=== PATIENT | female | born 1985 | race Caucasian/White ===

== ENCOUNTER 2025-06-24 10:58 | Observation (INO) ==
[2025-06-24 11:14] VITALS: BMI 27.1
[2025-06-24] MEDS ORDERED: DUONEB 0.5 MG/3 MG (3 mL) NEB ONE (11:22)
[2025-06-24] MEDS: DUONEB 0.5 MG/3 MG (3 mL) NEB ONE (11:31)
--- NOTE | 2025-06-24 12:13 | DR.URIAD ---
HPI Time Seen Time Seen by Provider: 06/24/25 11:18 PCP Primary Care Physician: Nancy Complaint Chief Complaint Doctors Comments: Patient with 2 weeks of coughing, shortness of breath and wheezing. Patient is a current smoker. Patient states she was treated with a Z-Madhu and later with amoxicillin and prednisone. States she is still getting short of breath easily with exertion. Chief Complaint:: Cohgestion, wheezing, SOB, coughing x 2 weeks. She has been treated with Z Pack and currently taking Amoxicillin and Prednisone Self Treatment fo Chief Complaint: Rx med COVID-19 Coronavirus risk:travel/contact w/high risk person: No Has patient experienced Coronavirus symptoms: Yes Coronavirus symptoms experienced: Coughing and Shortness of Breath Source History Provided: Patient Mode of Arrival Mode of Arrival: Ambulatory Timing Onset of Chief Complaint: 06/10/25 PMH PMH Past Medical History: Yes Past Medical History: Anxiety, Depression and GERD Past Medical History Comment: MS Past Surgical History: Yes Surgical History: Hysterectomy Family History History of Family Medical Conditions: Yes Family Medical History: Diabetes Mellitus, Cancer and Hypertension Social History Does patient currently use any type of tobacco product: No Have you used tobacco products in the last 12 months: No Type of Tobacco Use: None Does any household member use tobacco: No Alcohol Use: Rarely Do you use any recreational Drugs:: No Lives With: Spouse Lives Where: Home Travel Risk Coronavirus risk:travel/contact w/high risk person: No Has patient experienced Coronavirus symptoms: Yes Coronavirus symptoms experienced: Coughing and Shortness of Breath Infectious screening In the last 2 months have you had wt loss of >10#?: NO Have you had fever, night sweats or hemotysis?: No Have you traveled outside the country in the last 6 months?: No Isolation: Standard ROS Review of Systems Constitutional: No Symptoms Reported; negative Fever Eyes: No Symptoms Reported ENTM: No Symptoms Reported Respiratoy: Non-Productive Cough, Short of Breath and Wheezing Cardiovascular: No Symptoms Reported Gastrointestinal/Abdominal: No Symptoms Reported Genitourinary: No Symptoms Reported Neurological: No Symptoms Reported Musculoskeletal: No Symptoms Reported Integumentary: No Symptoms Reported Hematologic/Lymphatic: No Symptoms Reported Endocrine: No Symptoms Reported Psychiatric: No Symptoms Reported All Other Systems: Reviewed and Negative PE Vital Signs Vitals: Vital Signs Temperature 98.8 F Pulse Rate 88 Respiratory Rate 18 Blood Pressure 120/67 O2 Sat by Pulse Oximetry 95 General Limitations: No Limitations General Appearance: Alert and In No Apparent Distress Head Head Exam: Normal Inspection Eyes Eye exam: Normal Appearance Neck Neck Exam: Normal Inspection Chest Chest Inspection: Normal Inspection Respiratory Respiratory Exam: Accessory Muscle Use Respiratory Exam: Bilateral: Wheezing Cardiovascular Cardiovascular Exam: Regular Rate and Normal Rhythm Abdominal Exam Abdominal Exam: Normal Inspection, Normal Bowel Sounds and Soft Extremeties Extremities Exam: Normal Inspection Back Back Exam: Normal Inspection Neurologic Neurological Exam: Alert and Oriented X3 Psychiatric Psychiatric Exam: Normal Affect and Normal Mood Skin Skin Exam: Warm, Dry, Intact and Normal Color COURSE Treatment Treatment: Patient had some improvement with steroid injection and DuoNeb. Patient is still wheezing and coarse bilaterally. She has been doing 20 mg of prednisone at home daily with yesterday being the last dose. Reevaluation 1st: Improved Consultation Consultation Comments: Discussed case with Dr. Cruz and he is agreeable with admission. ROR Labs Reviewed Laboratory Results Reviewed?: Yes 06/24/25 12:21 06/24/25 12:21 Laboratory: WBC 13.1 X10^3/uL (3.6-10.0) H 06/24/25 12:21 RBC 4.98 X10^6/uL (3.5-5.4) 06/24/25 12:21 Hgb 14.5 g/dL (12.0-16.0) 06/24/25 12:21 Hct 42.7 % (36.0-47.0) 06/24/25 12:21 MCV 85.7 fL (80.0-100.0) 06/24/25 12:21 MCH 29.1 pg (27.0-34.0) 06/24/25 12:21 MCHC 34.0 g/dL (33.0-35.0) 06/24/25 12:21 RDW 13.4 % (11.6-16.5) 06/24/25 12:21 Plt Count 262 X10^3/uL (150.0-450.0) 06/24/25 12:21 MPV 8.6 fL (7.4-11.0) 06/24/25 12:21 Neut % (Auto) 73.7 % (42.0-75.0) 06/24/25 12:21 Lymph % (Auto) 18.2 % (21.0-51.0) L 06/24/25 12:21 [place] % (Auto) 7.4 % (0.0-13.0) 06/24/25 12:21 Eos % (Auto) 0.1 % (0.9-2.9) L 06/24/25 12:21 Baso % (Auto) 0.6 % (0.2-1.0) 06/24/25 12:21 Neut # (Auto) 9.7 x10^3/uL (2.2-4.8) H 06/24/25 12:21 Lymph # (Auto) 2.4 X10^3/uL (1.3-2.9) 06/24/25 12:21 [place] # (Auto) 1.0 x10^3/uL (0.3-0.8) H 06/24/25 12:21 Eos # (Auto) 0.0 x10^3/uL (0.0-0.2) 06/24/25 12:21 Baso # (Auto) 0.1 X10^3/uL (0.0-0.1) 06/24/25 12:21 Absolute Nucleated RBC 0.0 /100WBC 06/24/25 12:21 Sodium 142 mmol/L (136-145) 06/24/25 12:21 Corrected Sodium TNP 06/24/25 12:21 Potassium 3.5 mmol/L (3.5-5.1) 06/24/25 12:21 Chloride 103 mmol/L (98-107) 06/24/25 12:21 Carbon Dioxide 28.7 mmol/L (21-32) 06/24/25 12:21 BUN 17 mg/dL (7-18) 06/24/25 12:21 Creatinine 1.00 mg/dL (0.55-1.02) 06/24/25 12:21 Est GFR (MDRD) Af Amer > 60 (>60) 06/24/25 12:21 Est GFR (MDRD) Non-Af > 60 (>60) 06/24/25 12:21 Glucose 80 mg/dL (65-99) 06/24/25 12:21 Calcium 9.2 mg/dL (8.5-10.1) 06/24/25 12:21 Corrected Calcium TNP 06/24/25 12:21 Total Bilirubin 0.20 mg/dL (0.2-1.0) 06/24/25 12:21 AST 13 Units/L (15-37) L 06/24/25 12:21 ALT 11 Units/L (12-78) L 06/24/25 12:21 Alkaline Phosphatase 69 Units/L (46-116) 06/24/25 12:21 Total Protein 7.7 g/dL (6.4-8.2) 06/24/25 12:21 Albumin 3.9 g/dL (3.4-5.0) 06/24/25 12:21 Globulin 3.8 g/dL (2.5-4.5) 06/24/25 12:21 Albumin/Globulin Ratio 1.0 Ratio (1.1-2.1) L 06/24/25 12:21 SARS-CoV-2 (PCR) Negative (NEGATIVE) 06/24/25 11:05 Influenza Type A (PCR) Negative (NEGATIVE) 06/24/25 11:05 Influenza Type B (PCR) Negative (NEGATIVE) 06/24/25 11:05 RSV (PCR) Negative (NEGATIVE) 06/24/25 11:05 XRAY X-ray Results: Name: JOSEY DORSEY : 1985 Sex: F Location: Order Number(s): [id number] Procedure(s):CHEST, 1 VIEW X-RAY Ordering Physician: Handy Bennett Primary Care: Tre Cruz MD Service Date: 06/24/25 Service Time: 1214 EXAM: CHEST, 1 VIEW HISTORY: cough; COMPARISON: No relevant prior studies were available for comparison at the time of interpretation. TECHNIQUE: CHEST, 1 VIEW FINDINGS: Chest: Lines and tubes: None Mediastinum: Cardiac and mediastinal shadow is within normal limits for size and contour. Pulmonary vessels: No pulmonary vascular congestion. Lung rosales: No suspicious airspace opacity. Pleura: No effusion. No pneumothorax. Bones and soft tissues: No acute osseous or soft tissue abnormality. IMPRESSION: 1. No acute cardiopulmonary abnormality THIS IS AN ELECTRONICALLY VERIFIED FINAL REPORT 06/24/2025 12:35 PM - Electronically signed by Robi Ruelas MD Opioid Opioid Risk Tool Age (Gadiel box if 16-45): Yes History of Preadolescent Sexual Abuse: No Total: 1 Total Score Risk Category: Low Risk Copyright: Ney UGARTE predicting aberrant behaviors Discharge Plan Diagnosis Discharge Problem: COPD exacerbation Discharge Plan Patient Disposition: 09 ADMITTED INPATIENT Condition: Stable Prescriptions: No Action oxycodone-acetaminophen [Percocet] 10-325 mg tablet 1 tab PO TID MDD 3 PRN (Reason: pain) 30 Days Qty: 90 0RF famotidine [Pepcid] 40 mg tablet 40 mg PO QDAY Qty: 30 3RF fluoxetine [Prozac] 40 mg capsule 40 mg PO QDAY Qty: 30 3RF gabapentin 300 mg capsule 300 mg PO BID PRN (Reason: pain) 30 Days Qty: 60 2RF prednisone 20 mg tablet 20 mg PO QDAY 5 Days Qty: 5 0RF amoxicillin-pot clavulanate 875-125 mg tablet 1 tab PO BID 10 Days Qty: 20 0RF albuterol sulfate [Ventolin HFA] 90 mcg/actuation HFA aerosol inhaler 2 puff inhalation Q4-6H PRN (Reason: shortness of breath or wheezing) 30 Days Qty: 8.5 0RF dimethyl fumarate 120 mg (14)- 240 mg (46) capsule,delayed release(DR/EC) PO Health Concerns: Post Hospitalization: new medications and changes needed to prevent readmission or further decline. Pt educated and given instructions on all concerns. Plan of Treatment: Continue with present treatment and follow up plan. Pt is to keep follow up appointment as instructed and take medications as ordered. Orders to Discharge Patient Discharge Orders: Transfer (Routine); Ordered 06/24/25 Ordered By: Handy Bennett Follow ups/Referrals Follow ups/Referrals: Tre Cruz MD [Primary Care Provider, MEDICAL] - 3 days Instructions Stand Alone Forms: Find Help Web Site, Post Hospital Follow Up Care Print Language: NAURUAN
[2025-06-24 12:33] LABS: MEAN PLATELET VOLUME 8.6 fL (7.4-11.0); RED CELL DISTRIBUTION WIDTH 13.4 % (11.6-16.5)
--- NOTE | 2025-06-24 12:43 | RAD ---
EXAM: CHEST, 1 VIEW HISTORY: cough; COMPARISON: No relevant prior studies were available for comparison at the time of interpretation. TECHNIQUE: CHEST, 1 VIEW FINDINGS: Chest: Lines and tubes: None Mediastinum: Cardiac and mediastinal shadow is within normal limits for size and contour. Pulmonary vessels: No pulmonary vascular congestion. Lung rosales: No suspicious airspace opacity. Pleura: No effusion. No pneumothorax. Bones and soft tissues: No acute osseous or soft tissue abnormality. IMPRESSION: 1. No acute cardiopulmonary abnormality THIS IS AN ELECTRONICALLY VERIFIED FINAL REPORT 06/24/2025 12:35 PM - Electronically signed by Robi Ruelas MD
[2025-06-24 12:52] LABS: CREATININE 1.00 mg/dL (0.55-1.02); eGFR NON BLACK RACES > 60 (>60)
[2025-06-24] MEDS ORDERED: ULTRAM PO PRN (14:02)
[2025-06-24] MEDS ORDERED: TYLENOL 325 MG TAB PO PRN (14:02)
[2025-06-24] MEDS: VISBIOME PROBIOTIC CAP 112.5 B or equivalent PO SCH (14:17)
[2025-06-24] MEDS: MAALOX or MYLANTA PO PRN (17:03)
[2025-06-24] MEDS: DUONEB 0.5 MG/3 MG (3 mL) NEB SCH (17:19)
[2025-06-24] MEDS: PULMICORT NEB TX 0.5 MG NEB SCH (20:32)
[2025-06-24] MEDS ORDERED: PEPCID TAB 40 MG ONE (20:39)
[2025-06-24] MEDS: NEURONTIN CAP 300 MG PO PRN (20:52)
[2025-06-24] MEDS: PEPCID TAB 40 MG PO SCH (20:53)
[2025-06-24] MEDS: ROBITUSSIN DM PO PRN (22:26)
[2025-06-25 05:31] LABS: MEAN PLATELET VOLUME 8.7 fL (7.4-11.0); RED CELL DISTRIBUTION WIDTH 13.3 % (11.6-16.5)
[2025-06-25 05:35] LABS: COR NA(FOR HYPERGLY) 140 mmol/L (136-145); CREATININE 0.77 mg/dL (0.55-1.02); eGFR NON BLACK RACES > 60 (>60)
[2025-06-25] MEDS: TUSSIONEX PENNKINETIC SUSP PO PRN (09:00)
[2025-06-25] MEDS: ZITHROMAX INJ 500 MG VIAL 500 MG in NS 250 ML IV 250 ML IV SCH (10:10)
--- NOTE | 2025-06-25 11:20 | RAD ---
EXAM: CHEST, 1 VIEW HISTORY: F/U SOB, COUGH; COMPARISON: 06/24/2025 TECHNIQUE: AP .br.br.br.br consolidation, pleural effusion, or pneumothorax. IMPRESSION: No acute cardiopulmonary findings. THIS IS AN ELECTRONICALLY VERIFIED FINAL REPORT 06/25/2025 11:14 AM - Electronically signed by Juan Kahn MD
--- NOTE | 2025-06-25 13:16 | DR.H&P ---
H&P History & Physical for Day of: H&P Date: 06/25/25 Chief Complaint Chief Complaint: Cough shortness of breath History of Present Illness History of Present Illness: Patient is a 40-year-old female with a past medical history of MS, anxiety, depression, GERD and COPD presented with worsening dyspnea and URI symptoms. She has had the symptoms for over 2 weeks and has been treated outpatient with multiple rounds of antibiotics and steroids. She continued to have worsening cough and shortness of breath so presented to the ER. ER workup included chest x-ray which did not show any acute changes. Labs revealed elevated WBC. She was started on IV steroids and bronchodilators. She was admitted for further evaluation. This morning, she is feeling slightly better. She is currently on room air. She reports a history of smoking. Labs/imaging reviewed: - WBC 14.2 hemoglobin 13.3 potassium 4.1 creatinine 0.77 - Chest x-ray: No acute changes - Blood cultures and sputum culture pending Plan: Continue bronchodilators, IS and steroids. Will add azithromycin. CT chest ordered to evaluate further but not approved by insurance at this time. Follow-up pending cultures. Order AIT. Will repeat chest x-ray. Resume home medications. Replace electrolytes as per protocol. Monitor a.m. labs and imaging. Past Medical History Past Medical History: Anxiety, Depression and GERD Past Surgical History Surgical History: Hysterectomy and Ortho Surgery Family History Family Medical History: Diabetes Mellitus, Cancer and Hypertension Social History Does patient currently use any type of tobacco product: No Have you used tobacco products in the last 12 months: No Type of Tobacco Use: None Does any household member use tobacco: No Alcohol Use: None Drug Use: None Medications Home Medications: Home Medications Medication Instructions Recorded Confirmed Type dimethyl fumarate 120 mg (14)-240 cap PO 06/24/2512/17 History mg (46) capsule,delayed release Allergies Allergies Allergy/AdvReac Type Severity Reaction Status Date / Time ciprofloxacin (From Cipro) Allergy ANAPHALEXIS Verified 06/20/25 13:40 REACTION naproxen Allergy Verified 06/20/25 13:40 Labs 06/25/25 05:15 06/25/25 05:15 Labs: Laboratory WBC 14.2 X10^3/uL (3.6-10.0) H 06/25/25 05:15 RBC 4.54 X10^6/uL (3.5-5.4) 06/25/25 05:15 Hgb 13.3 g/dL (12.0-16.0) 06/25/25 05:15 Hct 39.2 % (36.0-47.0) 06/25/25 05:15 MCV 86.4 fL (80.0-100.0) 06/25/25 05:15 MCH 29.3 pg (27.0-34.0) 06/25/25 05:15 MCHC 33.9 g/dL (33.0-35.0) 06/25/25 05:15 RDW 13.3 % (11.6-16.5) 06/25/25 05:15 Plt Count 248 X10^3/uL (150.0-450.0) 06/25/25 05:15 MPV 8.7 fL (7.4-11.0) 06/25/25 05:15 Neut % (Auto) 84.5 % (42.0-75.0) H 06/25/25 05:15 Lymph % (Auto) 7.3 % (21.0-51.0) L 06/25/25 05:15 [place] % (Auto) 7.8 % (0.0-13.0) 06/25/25 05:15 Eos % (Auto) 0.0 % (0.9-2.9) L 06/25/25 05:15 Baso % (Auto) 0.4 % (0.2-1.0) 06/25/25 05:15 Neut # (Auto) 12.0 x10^3/uL (2.2-4.8) H 06/25/25 05:15 Lymph # (Auto) 1.0 X10^3/uL (1.3-2.9) L 06/25/25 05:15 [place] # (Auto) 1.1 x10^3/uL (0.3-0.8) H 06/25/25 05:15 Eos # (Auto) 0.0 x10^3/uL (0.0-0.2) 06/25/25 05:15 Baso # (Auto) 0.1 X10^3/uL (0.0-0.1) 06/25/25 05:15 Absolute Nucleated RBC 0.0 /100WBC 06/25/25 05:15 Sodium 140 mmol/L (136-145) 06/25/25 05:15 Corrected Sodium 140 mmol/L (136-145) 06/25/25 05:15 Potassium 4.1 mmol/L (3.5-5.1) 06/25/25 05:15 Chloride 104 mmol/L (98-107) 06/25/25 05:15 Carbon Dioxide 25.4 mmol/L (21-32) 06/25/25 05:15 BUN 11 mg/dL (7-18) 06/25/25 05:15 Creatinine 0.77 mg/dL (0.55-1.02) 06/25/25 05:15 Est GFR (MDRD) Af Amer > 60 (>60) 06/25/25 05:15 Est GFR (MDRD) Non-Af > 60 (>60) 06/25/25 05:15 Glucose 115 mg/dL (65-99) H 06/25/25 05:15 Calcium 8.7 mg/dL (8.5-10.1) 06/25/25 05:15 Corrected Calcium TNP 06/24/25 12:21 Magnesium 2.0 mg/dL (2.0-2.9) 06/25/25 05:15 Total Bilirubin 0.20 mg/dL (0.2-1.0) 06/24/25 12:21 AST 13 Units/L (15-37) L 06/24/25 12:21 ALT 11 Units/L (12-78) L 06/24/25 12:21 Alkaline Phosphatase 69 Units/L (46-116) 06/24/25 12:21 Total Protein 7.7 g/dL (6.4-8.2) 06/24/25 12:21 Albumin 3.9 g/dL (3.4-5.0) 06/24/25 12:21 Globulin 3.8 g/dL (2.5-4.5) 06/24/25 12:21 Albumin/Globulin Ratio 1.0 Ratio (1.1-2.1) L 06/24/25 12:21 SARS-CoV-2 (PCR) Negative (NEGATIVE) 06/24/25 11:05 Influenza Type A (PCR) Negative (NEGATIVE) 06/24/25 11:05 Influenza Type B (PCR) Negative (NEGATIVE) 06/24/25 11:05 RSV (PCR) Negative (NEGATIVE) 06/24/25 11:05 Review of Systems Constitutional: No Symptoms Reported Eyes: No Symptoms Reported ENT: No Symptoms Reported Respiratory: Cough and SOB with Excertion Cardiovascular: No Symptoms Reported Gastrointestinal: No Symptoms Reported Genitourinary: No Symptoms Reported Musculoskeletal: No Symptoms Reported Skin: No Symptoms Reported Neurological: No Symptoms Reported Physical Exam Vital Signs: Vital Signs Temperature 97.5 F Temperature 98.7 F Pulse Rate [Radial] 86 Pulse Rate [Radial] 84 Pulse Rate 91 Pulse Rate 78 Respiratory Rate 18 Respiratory Rate 20 Blood Pressure [Left Arm] 113/55 Blood Pressure [Left Arm] 111/56 O2 Sat by Pulse Oximetry 97 O2 Sat by Pulse Oximetry 97 O2 Sat by Pulse Oximetry 97 O2 Sat by Pulse Oximetry 97 Oriented: Normal Throat: Normal Respiratory: Rhonchi Throughout and Wheezes Throughout Cardiovascular: Normal Auscultation: Bowel Sounds: Normal Palpation: Normal Tenderness: Normal Skin: Normal Musculoskeletal: Normal Psychiatric: Normal Mood Description: Calm Affect: Normal Speech Pattern: Clear and Appropriate Assessment/Plan (1) COPD exacerbation: Status: Acute (2) Acute upper respiratory infection: Status: Acute (3) GERD (gastroesophageal reflux disease): Qualifiers: Esophagitis presence: without esophagitis Qualified Code(s): K21.9 - Gastro-esophageal reflux disease without esophagitis Status: Chronic (4) MDD (major depressive disorder): Status: Chronic (5) Multiple sclerosis: Status: Chronic Review H&P Reviewed: Yes Patient was examined?: Yes
[2025-06-25] MEDS: NORCO 5/325 MG TAB PO PRN (13:40)
[2025-06-26 00:10] VITALS: O2SAT 99
[2025-06-26 05:51] LABS: MEAN PLATELET VOLUME 8.8 fL (7.4-11.0); RED CELL DISTRIBUTION WIDTH 13.7 % (11.6-16.5)
[2025-06-26 05:55] LABS: BAND NEUTROPHILS % 2 % (0-10); PLATELET MORPHOLOGY COMMENT NORMAL (NORMAL)
[2025-06-26 05:56] LABS: COR NA(FOR HYPERGLY) 142 mmol/L (136-145); CREATININE 0.80 mg/dL (0.55-1.02); eGFR NON BLACK RACES > 60 (>60)
--- NOTE | 2025-06-26 09:32 | W.DIS.FURT ---
Summary of Discharge Discharge Summary of Date Date of Exam: 06/26/25 Admission Date Date of Admission: 06/24/25 Admission Diagnosis Patient Problems (Updated 06/25/25 @ 13:12 by Kika De Jesus MD) COPD exacerbation (Acute) J44.1 Hospital Course: Patient is a 40-year-old female with a past medical history of MS, anxiety, depression, GERD and COPD admitted for COPD exacerbation and rhino/enterovirus pneumonia. She was started on IV steroids, azithromycin, and bronchodilators. Patient responded well to treatments and symptoms significantly improved. She was on room air on discharge. Chest x-ray: No acute changes. She does have some leukocytosis that is likely related to steroids. AIT positive for rhino/enterovirus. Patient was discharged in stable condition. She was prescribed prednisone, azithromycin, and bronchodilators. She was instructed to follow-up with PCP in 1 week. Time spent for clinical assessment, reviewing labs/imaging, physical exam, decision making and documentation greater than 45 mins. Vital Signs: Vital Signs (72 hours) 06/24/25 10:59 06/24/25 13:31 06/24/25 13:47 Temperature 98.8 F 98.8 F Pulse Rate 88 Pulse Rate [Radial] Respiratory Rate 18 18 Blood Pressure 120/67 Blood Pressure [Left Arm] O2 Sat by Pulse Oximetry 95 95 Oxygen Delivery Method Room Air Room Air Room Air 06/24/25 14:00 06/24/25 14:13 06/24/25 14:16 Temperature 97.2 F L 98.8 F Pulse Rate 87 Pulse Rate [Radial] 77 Respiratory Rate 20 18 Blood Pressure 120/67 Blood Pressure [Left Arm] 125/63 O2 Sat by Pulse Oximetry 95 97 Oxygen Delivery Method Room Air Room Air Room Air 06/24/25 16:00 06/24/25 17:19 06/24/25 19:00 Temperature 97.9 F Pulse Rate 87 Pulse Rate [Radial] 84 Respiratory Rate 19 Blood Pressure Blood Pressure [Left Arm] 122/58 O2 Sat by Pulse Oximetry 96 97 Oxygen Delivery Method Room Air Room Air 06/24/25 20:00 06/24/25 20:35 06/24/25 20:35 Temperature 98.3 F Pulse Rate 79 Pulse Rate [Radial] 90 Respiratory Rate 20 Blood Pressure Blood Pressure [Left Arm] 113/67 O2 Sat by Pulse Oximetry 96 97 Oxygen Delivery Method Room Air Room Air 06/25/25 00:00 06/25/25 00:35 06/25/25 04:00 Temperature 98.0 F 98.3 F Pulse Rate 84 Pulse Rate [Radial] 72 85 Respiratory Rate 18 18 Blood Pressure Blood Pressure [Left Arm] 95/55 108/55 O2 Sat by Pulse Oximetry 96 92 L 97 Oxygen Delivery Method Room Air Room Air 06/25/25 05:40 06/25/25 07:00 06/25/25 08:00 Temperature 98.7 F Pulse Rate 78 Pulse Rate [Radial] 84 Respiratory Rate 20 Blood Pressure Blood Pressure [Left Arm] 111/56 O2 Sat by Pulse Oximetry 97 97 Oxygen Delivery Method Room Air Room Air 06/25/25 08:52 06/25/25 08:52 06/25/25 12:00 Temperature 97.5 F L Pulse Rate 91 H Pulse Rate [Radial] 86 Respiratory Rate 18 Blood Pressure Blood Pressure [Left Arm] 113/55 O2 Sat by Pulse Oximetry 97 97 Oxygen Delivery Method Room Air Room Air 06/25/25 13:40 06/25/25 14:40 06/25/25 16:00 Temperature 97.6 F Pulse Rate Pulse Rate [Radial] 82 Respiratory Rate 20 20 17 Blood Pressure Blood Pressure [Left Arm] 115/57 O2 Sat by Pulse Oximetry 98 Oxygen Delivery Method Room Air 06/25/25 19:00 06/25/25 20:00 06/25/25 20:35 Temperature 97.2 F L Pulse Rate Pulse Rate [Radial] 93 H Respiratory Rate 18 Blood Pressure Blood Pressure [Left Arm] 124/58 O2 Sat by Pulse Oximetry 96 Oxygen Delivery Method Room Air Room Air Room Air 06/25/25 20:35 06/26/25 00:00 06/26/25 00:09 Temperature 98.3 F Pulse Rate 95 H 83 Pulse Rate [Radial] 84 Respiratory Rate 18 Blood Pressure Blood Pressure [Left Arm] 110/56 O2 Sat by Pulse Oximetry 97 94 L 99 Oxygen Delivery Method Room Air 06/26/25 04:00 06/26/25 05:53 06/26/25 08:46 Temperature 97.6 F Pulse Rate 77 Pulse Rate [Radial] 90 Respiratory Rate 18 Blood Pressure Blood Pressure [Left Arm] 119/68 O2 Sat by Pulse Oximetry 96 99 Oxygen Delivery Method Room Air Room Air 06/26/25 08:46 Temperature Pulse Rate 77 Pulse Rate [Radial] Respiratory Rate Blood Pressure Blood Pressure [Left Arm] O2 Sat by Pulse Oximetry 99 Oxygen Delivery Method Labs: Laboratory Last Values WBC 18.4 X10^3/uL (3.6-10.0) H 06/26/25 05:21 RBC 4.65 X10^6/uL (3.5-5.4) 06/26/25 05:21 Hgb 13.5 g/dL (12.0-16.0) 06/26/25 05:21 Hct 39.9 % (36.0-47.0) 06/26/25 05:21 MCV 85.9 fL (80.0-100.0) 06/26/25 05:21 MCH 29.0 pg (27.0-34.0) 06/26/25 05:21 MCHC 33.7 g/dL (33.0-35.0) 06/26/25 05:21 RDW 13.7 % (11.6-16.5) 06/26/25 05:21 Plt Count 276 X10^3/uL (150.0-450.0) 06/26/25 05:21 Plt Count Comment Adequate (ADEQUATE) 06/26/25 05:21 MPV 8.8 fL (7.4-11.0) 06/26/25 05:21 Neut % (Auto) 91.2 % (42.0-75.0) H 06/26/25 05:21 Lymph % (Auto) 4.8 % (21.0-51.0) L 06/26/25 05:21 Mitchell % (Auto) 3.8 % (0.0-13.0) 06/26/25 05:21 Eos % (Auto) 0.0 % (0.9-2.9) L 06/26/25 05:21 Baso % (Auto) 0.2 % (0.2-1.0) 06/26/25 05:21 Neut # (Auto) 16.8 x10^3/uL (2.2-4.8) H 06/26/25 05:21 Lymph # (Auto) 0.9 X10^3/uL (1.3-2.9) L 06/26/25 05:21 Mitchell # (Auto) 0.7 x10^3/uL (0.3-0.8) 06/26/25 05:21 Eos # (Auto) 0.0 x10^3/uL (0.0-0.2) 06/26/25 05:21 Baso # (Auto) 0.0 X10^3/uL (0.0-0.1) 06/26/25 05:21 Absolute Nucleated RBC 0.1 /100WBC 06/26/25 05:21 Total Counted 100 06/26/25 05:21 Neutrophils % (Manual) 86 % (39-76) H 06/26/25 05:21 Band Neutrophils % 2 % (0-10) 06/26/25 05:21 Lymphocytes % (Manual) 7 % (13-43) L 06/26/25 05:21 Monocytes % (Manual) 5 % (4-9) 06/26/25 05:21 Plt Morphology Comment Normal (NORMAL) 06/26/25 05:21 RBC Morphology Normal (NORMAL) 06/26/25 05:21 Sodium 141 mmol/L (136-145) 06/26/25 05:21 Corrected Sodium 142 mmol/L (136-145) 06/26/25 05:21 Potassium 4.7 mmol/L (3.5-5.1) 06/26/25 05:21 Chloride 104 mmol/L (98-107) 06/26/25 05:21 Carbon Dioxide 26.8 mmol/L (21-32) 06/26/25 05:21 BUN 11 mg/dL (7-18) 06/26/25 05:21 Creatinine 0.80 mg/dL (0.55-1.02) 06/26/25 05:21 Est GFR (MDRD) Af Amer > 60 (>60) 06/26/25 05:21 Est GFR (MDRD) Non-Af > 60 (>60) 06/26/25 05:21 Glucose 127 mg/dL (65-99) H 06/26/25 05:21 Calcium 8.7 mg/dL (8.5-10.1) 06/26/25 05:21 Corrected Calcium TNP 06/26/25 05:21 Magnesium 2.0 mg/dL (2.0-2.9) 06/25/25 05:15 Total Bilirubin 0.20 mg/dL (0.2-1.0) 06/26/25 05:21 AST 11 Units/L (15-37) L 06/26/25 05:21 ALT 12 Units/L (12-78) 06/26/25 05:21 Alkaline Phosphatase 58 Units/L (46-116) 06/26/25 05:21 Total Protein 7.6 g/dL (6.4-8.2) 06/26/25 05:21 Albumin 3.7 g/dL (3.4-5.0) 06/26/25 05:21 Globulin 3.9 g/dL (2.5-4.5) 06/26/25 05:21 Albumin/Globulin Ratio 0.9 Ratio (1.1-2.1) L 06/26/25 05:21 SARS-CoV-2 (PCR) Negative (NEGATIVE) 06/24/25 11:05 Influenza Type A (PCR) Negative (NEGATIVE) 06/24/25 11:05 Influenza Type B (PCR) Negative (NEGATIVE) 06/24/25 11:05 RSV (PCR) Negative (NEGATIVE) 06/24/25 11:05 Resp Viral Panel (PCR) See scanned report 06/25/25 12:51 Reason For Visit: COPD EXACERBATION Discharge Date Discharge Date: 06/26/25 Discharge Diagnosis All Active Problems (Updated 06/25/25 @ 13:12 by Kika De Jesus MD) COPD exacerbation (Acute) Frontal sinusitis (Acute) Expiratory wheezing (Acute) Urinary frequency (Acute) Diarrhea (Acute) Cough (Acute) Acute upper respiratory infection (Acute) Urinary tract infection (Acute) Fall (Acute) Acute pain of right hip (Acute) GERD (gastroesophageal reflux disease) (Chronic) MDD (major depressive disorder) (Chronic) Lumbar strain (Acute) Multiple sclerosis (Chronic) Atypical pigmented skin lesion (Acute) Pneumonia (Acute) Fish hook in dorsum of hand (Acute) URI (upper respiratory infection) (Acute) Allergic reaction (Acute) Left shoulder strain (Acute) Dyspnea (Acute) Plan of Treatment: Continue with present treatment and follow up plan. Pt is to keep follow up appointment as instructed and take medications as ordered. Discharge Medications Discharge Medications: ciprofloxacin (From Cipro) Allergy (Verified 06/20/25 13:40) ANAPHALEXIS REACTION naproxen Allergy (Verified 06/20/25 13:40) CONTINUE taking the following medications dimethyl fumarate 120 mg (14)-240 mg (46) capsule,delayed release cap PO 06/24/25 [History] New Prescriptions azithromycin 250 mg tablet 250 mg PO ONCE 4 days #4 tabs 06/26/25 [Rx] hydrocodone 10 mg-chlorpheniramine 8 mg/5 mL oral susp extend.rel 12hr 5 ml PO Q12H PRN 15 days #150 mL 06/26/25 [Rx] ipratropium 0.5 mg-albuterol 3 mg (2.5 mg base)/3 mL nebulization soln 3 ml inhalation Q4-6H PRN #180 mL 06/26/25 [Rx] prednisone 20 mg tablet 40 mg (2 x 20 mg) PO QDAY 5 days #10 tabs 06/26/25 [Rx] Discharge Plan Discharge Plan Hospital Course: Patient is a 40-year-old female with a past medical history of MS, anxiety, depression, GERD and COPD admitted for COPD exacerbation and rhino/enterovirus pneumonia. She was started on IV steroids, azithromycin, and bronchodilators. Patient responded well to treatments and symptoms significantly improved. She was on room air on discharge. Chest x-ray: No acute changes. She does have some leukocytosis that is likely related to steroids. AIT positive for rhino/enterovirus. Patient was discharged in stable condition. She was prescribed prednisone, azithromycin, and bronchodilators. She was instructed to follow-up with PCP in 1 week. Time spent for clinical assessment, reviewing labs/imaging, physical exam, decision making and documentation greater than 45 mins. Patient Disposition: 01 HOME, SELF-CARE Condition: Stable Health Concerns: Post Hospitalization: new medications and changes needed to prevent readmission or further decline. Pt educated and given instructions on all concerns. Care Plan Goals: Problem: Respiratory Complications Goal: Improved Uncomplicated Respiratory Status Instructions: Follow provided instructions. Follow up with primary physician as directed. Contact primary care physician or report to the closest Emergency Room if condition worsens. Plan of Treatment: Continue with present treatment and follow up plan. Pt is to keep follow up appointment as instructed and take medications as ordered. Prescriptions: New hydrocodone-chlorpheniramine 10-8 mg/5 mL Suspension,Extended Rel 12 Hr 5 ml PO Q12H MDD 10 PRN15 Days Qty: 150 0RF azithromycin 250 mg tablet 250 mg PO ONCE 4 Days Qty: 4 0RF ipratropium-albuterol 0.5 mg-3 mg(2.5 mg base)/3 mL solution for nebulization 3 ml inhalation Q4-6H PRNQty: 180 0RF Continued oxycodone-acetaminophen [Percocet] 10-325 mg tablet 1 tab PO TID MDD 3 PRN (Reason: pain) 30 Days Qty: 90 0RF famotidine [Pepcid] 40 mg tablet 40 mg PO QDAY Qty: 30 3RF fluoxetine [Prozac] 40 mg capsule 40 mg PO QDAY Qty: 30 3RF gabapentin 300 mg capsule 300 mg PO BID PRN (Reason: pain) 30 Days Qty: 60 2RF albuterol sulfate [Ventolin HFA] 90 mcg/actuation HFA aerosol inhaler 2 puff inhalation Q4-6H PRN (Reason: shortness of breath or wheezing) 30 Days Qty: 8.5 0RF dimethyl fumarate 120 mg (14)- 240 mg (46) capsule,delayed release(DR/EC) PO Changed prednisone 20 mg tablet 40 mg PO QDAY 5 Days Qty: 10 0RF Discontinued amoxicillin-pot clavulanate 875-125 mg tablet 1 tab PO BID 10 Days Qty: 20 0RF Orders to Discharge Patient Discharge Orders: Discharge (Routine); Ordered 06/26/25 Ordered By: Tre Cruz Follow ups/Referrals Follow ups/Referrals: Tre Cruz MD [Primary Care Provider, MEDICAL] - 07/03/25 3:40 pm Instructions Instructions: Steps to Quit Smoking, [id number], Chronic Obstructive Pulmonary Disease Exacerbation, Hypomagnesemia, Living With COPD Stand Alone Forms: Find Help Web Site, Post Hospital Follow Up Care Print Language: [place]
[2025-06-26 12:02] VITALS: BP 121/56; PULSE 97; RESP 20; TEMP 97.7
== END 2025-06-26 10:50 | disposition home or self-care (01) ==
LOC: ER 10:58 → MED/SURG 10:58
PROVIDERS: ADMIT Family Medicine; ATTEND Family Medicine
DX: J44.1 Chronic obstructive pulmonary disease with (acute) exacerbation; G35 Multiple sclerosis; Z65.8 Other specified problems related to psychosocial circumstances; B97.3 Retrovirus as the cause of diseases classified elsewhere; R06.02 Shortness of breath; F41.8 Other specified anxiety disorders; F32.89 Other specified depressive episodes; R05.8 Other specified cough; J12.89 Other viral pneumonia; Z03.818 Encounter for observation for suspected exposure to other biological agents ruled out; K21.9 Gastro-esophageal reflux disease without esophagitis; E83.42 Hypomagnesemia; B97.19 Other enterovirus as the cause of diseases classified elsewhere; Z72.0 Tobacco use